=== PATIENT | male | born 1975 | race Caucasian/White ===

== ENCOUNTER 2022-10-05 19:47 | Emergency (ER) | payer BC ==
[~2022-10-05] VITALS: Ht 177.8 cm; Wt 133.8 kg
[2022-10-05] MEDS ORDERED: CEPH500C2 PO (20:43)
--- NOTE | 2022-10-05 21:02 | NUR ---
Patient discharged to home in stable condition. Written and verbal after care instructions given. Patient verbalizes understanding of instruction.
[2022-10-05 21:03] VITALS: BP 133/88
== END 2022-10-05 21:03 | disposition home or self-care (01) ==
LOC: ER 20:15
DX: L03.116 Cellulitis of left lower limb (principal); M79.662 Pain in left lower leg
CPT/HCPCS: 93971-TC